=== PATIENT | female | born 1990 | race Caucasian/White ===

== ENCOUNTER 2024-01-19 11:30 | Emergency (ER) | payer OTHER ==
[~2024-01-19] VITALS: Ht 160 cm; Wt 50.8 kg
[~2024-01-19 11:30] MED LIST: NAPR220C62 PO; TIZANIDINE PO; [UNRECOGNIZED DRUG - OTHER] PO
[2024-01-19 11:36] VITALS: BP 128/87; PULSE 100; RESP 16; TEMP 98.3; O2SAT 98
[2024-01-19] MEDS ORDERED: IBUP-2077 PO (11:48)
--- NOTE | 2024-01-19 11:49 | ERN ---
ED Note History of Present Illness Stated Complaint: LEFT ARM COLD AFTER IV Chief Complaint: Skin Problem Time Seen by MD: 11:32 Dictation: PATIENT IS A 33-YEAR-OLD FEMALE HERE WITH COMPLAINTS OF PAIN TO LEFT LATERAL WRIST IV SITE FROM WHERE SHE WAS ADMITTED TO THE HOSPITAL AT [facility] SEVERAL DAYS AGO FOR ABDOMINAL PAIN. SHE STATES HER HAND FEELS COLD HOWEVER CAP REFILL IS BRISK, WARM TO TOUCH AND PALMAR REFILL IS BRISK. TENDERNESS NOTED TO VENOUS SITE WHERE SHE HAD HAD VENOUS PUNCTURE. NO FEVER NO CHILLS Allergies: Coded Allergies: codeine (Unverified Allergy, Unknown, HIVES, 01/14/24) loracarbef (Unverified Allergy, Unknown, HIVES, 01/14/24) Home Meds Reported Medications [Estrarylla] No Conflict Check, 1 TAB PO DAILY 01/14/24 Naproxen Sodium (Naproxen Sodium) 220 Mg Capsule, 2 CAP PO BID PRN for PRN for 7 Days, #28 CAP 0 Refills 01/14/24 [Tyzadidine] No Conflict Check, 4 MG PO 1-2 TIMES A DAY PRN for PRN 01/14/24 Past Medical History Past Medical History: No Pertinent History Surgical History: None Surgical History Other: JAW SX History: Not Applicable RN Note Reviewed/Agreed w/PFSH: Yes Review of System Dictation CONSTITUTIONAL: NEGATIVE EXCEPT FOR HPI HEAD/FACE: NEGATIVE EXCEPT FOR HPI EENT: NEGATIVE EXCEPT FOR HPI RESPIRATORY: NEGATIVE EXCEPT FOR HPI GASTROINTESTINAL/ABDOMINAL: NEGATIVE EXCEPT FOR HPI GENITOURINARY: NEGATIVE EXCEPT FOR HPI MUSCULOSKELETAL: NEGATIVE EXCEPT FOR HPI TENDERNESS TO VENOUS PUNCTURE SITE LEFT LATERAL WRIST. INTEGUMENTARY: NEGATIVE EXCEPT FOR HPI NEUROLOGICAL/PSYCH: NEGATIVE EXCEPT FOR HPI HEMATOLOGIC/LYMPHATIC: NEGATIVE EXCEPT FOR HPI ALL SYSTEMS NEGATIVE, EXCEPT NOTED ABOVE. 13 POINT REVIEW OF SYSTEMS ASSESSED AND ALL NEGATIVE EXCEPT FOR ABOVE. Initial Vital Sign VS Vital Signs Date Time Temp Pulse Resp B/P (MAP) Pulse Ox O2 Delivery O2 Flow Rate FiO2 01/19/24 11:36 98.2 100 16 128/87 98 Room Air 0 01/19/24 11:36 21 Physical Exam Dictation VITAL SIGNS REVIEWED GENERAL APPEARANCE: ALERT, ORIENTED X 3, MILD ACUTE DISTRESS, WELL DEVELOPED, NOURISHED. HEAD AND FACE: NON-TRAUMATIC. EYES: PERRL, PINK CONJUNCTIVAS, EYELID NO TRAUMA, ANTERIOR CHAMBER WITH ARCUS SENILIS. EARS: PINNAS INTACT AND NO SIGNS OF TRAUMA OR ERYTHEMA EAR CANALS CLEAR AND NO DISCHARGE TM NO ERYTHEMA NOSE: NO DISCHARGE, NO BLEEDING. OROPHARYNX: MOUTH NORMAL, TONGUE PINK, PHARYNX CLEAR,NO ERYTHEMA, TONSILS NO EXUDATES, NO ABSCESSES NOTED, MUCOUS MEMBRANE MOIST NECK: SUPPLE, NON-TENDER, NO THYROMEGALY, NO MASSES, NO JVD, NO BRUITS BREAST:DEFERRED CHEST:NO TENDERNESS, NO CREPITUS, NO PARADOXICAL MOVEMENT, NO RETRACTIONS LUNGS:CLEAR, WELL-VENTILATED, SYMMETRIC, NO RALES, NO WHEEZING, NO RHONCHI, NO STRIDOR, GOOD BREATH SOUNDS BILATERALLY HEART: REGULAR RATE, REGULAR RHYTHM, NO MURMUR, NO GALLOPS VASCULAR: NO PERIPHERAL EDEMA, ABDOMEN: SOFT, POSITIVE BOWEL SOUNDS, NONDISTENDED, NO GUARDING, NONTENDER, NO REBOUND, NO MASSES NO HEPATOMEGALY, NO SPLENOMEGALY, NO SKINNER'S SIGN, NO HERNIAS. RECTAL: DEFERRED GENITAL: DEFERRED NEUROLOGICAL: NORMAL SPEECH, MOTOR FUNCTION INTACT, SENSORY FUNCTION INTACT MUSCULOSKELETAL: NECK NONTENDER, FULL RANGE OF MOTION, BACK NONTENDER, FULL RANGE OF MOTION, EXTREMITIES: NONTENDER, FULL RANGE OF MOTION SKIN: COLOR PINK, DRY, TENDERNESS TO LEFT LATERAL WRIST VENOUS PUNCTURE SITE. NO TRACKING. FULL RANGE OF MOTION TO LEFT HAND WITH BRISK CAPILLARY REFILL AND PALMAR REFILL BRISK LYMPHATIC: DEFERRED Results (Laboratory/Radiology) Labs Reviewed?: Yes ED Course ED Course Orders Procedure Category Date Status Time Ketorolac 60mg/2ml PHA 01/19/24 In Process (Toradol 60mg/2ml) 12:00 Vital Signs Date Time Temp Pulse Resp B/P (MAP) Pulse Ox O2 Delivery O2 Flow Rate FiO2 01/19/24 11:36 99.5 80 16 128/87 98 Room Air* 0 21 01/19/24 11:36 98.2 100 16 128/87 98 Room Air 0 1145 PATIENT WILL BE TREATED EMPIRICALLY FOR THROMBOPHLEBITIS WITH TORADOL AND GIVEN NONSTEROIDAL DRUGS. FOR DISCHARGE NO LABS OR IMAGING INDICATED Medical Decision Making MDM MEDICAL DECISION-MAKING BASED ON TREATMENT FOR THROMBOPHLEBITIS NO LABS OR IMAGING INDICATED PATIENT GIVEN TORADOL IN EMERGENCY ROOM , DISCHARGED HOME WITH IBUPROFEN TO BE TAKEN EVERY 8 HOURS FOR THE NEXT THREE DAYS WITH FOOD. DX & DISP Disposition: Discharge Departure Impression: Primary Impression: Thrombophlebitis after perfusion Condition: Stable Scripts Ibuprofen (Ibuprofen 800 mg Tab) 800 Mg Tab 800 MG PO Q8H PRN for fever or pain, #30 TAB 0 Refills Prov: JUAN A HUNTER NP 01/19/24 Additional Instructions: FOLLOW-UP WITH PRIMARY CARE PROVIDER IN 1 TO 2 DAYS. TAKE MEDICATIONS DIRECTED HERE IN THE EMERGENCY ROOM. OKAY TO CONTINUE HOME MEDICATIONS UNLESS OTHERWISE DISCUSSED DURING YOUR VISIT IN THE EMERGENCY ROOM TODAY. RETURN TO YOUR NEAREST EMERGENCY ROOM IF SYMPTOMS WORSEN OR IF THERE IS NO IMPROVEMENT. CALL 911 IF YOU NEED IMMEDIATE ASSISTANCE. TAKE TYLENOL OR MOTRIN [id number] NEEDED AND IF NO CONTRAINDICATIONS ARE PRESENT. INCREASE ORAL HYDRATION. A WOUND CULTURE OR URINE CULTURE WAS ORDERED HERE IN THE EMERGENCY ROOM DEPARTMENT PLEASE FOLLOW-UP WITH PRIMARY CARE PROVIDER AND ADVISE THEM TO GET REPEAT PORTS FROM OUR FACILITY. IF YOU HAD ANY [place] WRAP/SPLINTS THAT WERE APPLIED HERE, PLEASE DO NOT REMOVE THEM UNTIL YOU SEE YOUR PRIMARY CARE OR SPECIALTY. WARM COMPRESSES TO PAIN THREE TO 4 TIMES A DAY., TAKE IBUPROFEN EVERY8 HOURS WITH FOOD FOR THE NEXT THREE DAYS. FOLLOW UP WITH YOUR PRIMARY CARE DOCTOR Referrals: SELF,REFERRAL (PCP) Time of Disposition: 11:48 I have reviewed the case, and I agree with, Diagnosis and Plan JUAN A HUNTER NP Jan 19, 2024 11:49
[2024-01-19] MEDS: ketOROlac 60 MG VIAL (30MG/ML) IM ONE (12:09)
== END 2024-01-19 12:18 | disposition home or self-care (01) ==
LOC: EDH 11:30
DX: I80.9 Phlebitis and thrombophlebitis of unspecified site (principal); Z88.5 Allergy status to narcotic agent
CPT/HCPCS: 99283; 96372; J1885

== ENCOUNTER 2024-01-20 22:31 | Emergency (ER) | payer OTHER ==
[~2024-01-20] VITALS: Ht 160 cm; Wt 52.2 kg
[~2024-01-20 22:31] MED LIST changes: +IBUP-2077 PO
--- NOTE | 2024-01-20 23:53 | ERN ---
General Chief Complaint: Allergic Reaction Stated Complaint: ALLERGIC REACTION Time Seen by MD: 22:32 History of Present Illness Initial Comments Mrs Adler is a 33-year-old female with no significant past medical history who presents today with a chief complaint of an allergic reaction. Patient reports that she ate at 5:30 a.m. and started developing some itchy feet at around 10:00 a.m.. Patient states that she started feeling some swelling in her face and inner eyelid. Patient states she took 50 mg of Benadryl and came in the emergency department. She denies any allergies to foods. She denies any bug bites. She denies any other potential exposures. Patient reports that she has no longer symptomatic and feels back to normal. She wants to be checked out. Allergies: Coded Allergies: codeine (Unverified Allergy, Unknown, HIVES, 01/14/24) loracarbef (Unverified Allergy, Unknown, HIVES, 01/14/24) Home Meds Active Scripts Ibuprofen (Ibuprofen 800 mg Tab) 800 Mg Tab, 800 MG PO Q8H PRN for fever or pain, #30 TAB 0 Refills Prov:JUAN A HUNTER NP 01/19/24 Reported Medications [Estrarylla] No Conflict Check, 1 TAB PO DAILY 01/14/24 Naproxen Sodium (Naproxen Sodium) 220 Mg Capsule, 2 CAP PO BID PRN for PRN for 7 Days, #28 CAP 0 Refills 01/14/24 [Tyzadidine] No Conflict Check, 4 MG PO 1-2 TIMES A DAY PRN for PRN 01/14/24 Past Medical History Past Medical History: No Pertinent History Past Surgical History: None Surgical History Other: JAW SX Female( History) History: Not Applicable ROS Dictation Constitutional: Negative for fever,chills, and weight loss Eyes: Negative for injury, pain,redness, and discharge ENT: Positive for facial swelling Cardiovascular: Negative for chest pain, palpitations, and edema Respiratory: Negative for shortness of breath, cough, and wheezing, Abdomen/GI: Negative for abdominal pain, nausea, vomiting, diarrhea, and constipation Back: Negative for injury and pain : Negative for injury, bleeding and discharge MS/Extremity: Negative for injury and deformity Skin: Positive for pruritus in the lower extremities Neuro: Negative for headache, weakness, numbness, tingling, and seizure Psych: Negative for suicide ideation, homicidal ideation, and hallucinations Physical Exam Physical Exam Dictation General: awake, alert, NAD Head/Face: Edentulous female Eyes: PERRL, EOMI, vision at baseline ENT: oral cavity clear Neck: Trachea midline, supple Cardiovascular: RRR, normal S1/S2, No MRGs, no JVD Respiratory: CTAB, no respiratory distress, No rales or wheezes Abdomen: Soft, non-tender, non-distended, normal bowel sounds, no guarding or rebound. Skin: Warm, dry, normal turgor, no rash MS/Extremity: Pulses equal, no cyanosis, neurovascular intact, FROM Neuro: COAx4, GCS 15, strength 5/5, CN 2-12 intact, normal cerebellar exam, normal gait, Psych: Normal behavior, mood, and affect normal MDM Patient has no signs of active swelling/angioedema. Patient's airway is completely clear without any pathology. Patient was no signs of hives. Advised patient to have p.r.n. Benadryl and tried to evaluate/retraced potential exposures. Advised patient if she worsens to come back to the emergency department. MDM: Differential diagnosis: Pruritus Rationale: Tests considered and ordered secondary to shared decision making include: Previous outside records reviewed: Old ER visits. Risk of complication and/or morbidity or mortality of patient management: None Medications-Per medication reconciliation Need for hospitalization: Patient does not meet criteria for hospitalization. Need for emergency major/minor surgery: No There are no social concerns with this patient. Prescription drug management Prescriptions will include symptomatic care Patient's prior external medical records from other ER visits were reviewed by me as indicated. Prior testing and results from previous visits were reviewed. Prior tests were taken into account with medical decision making and resource utilization, independent historian/historians were used to obtain complete medical history. I independently interpreted the test that were performed, results were reviewed by me and considered findings on radiology if ordered. Medical management and examination interpretation discussions were had by me with other qualified healthcare professionals as indicated for the patient's care. ED Course Vital Signs Date Time Temp Pulse Resp B/P (MAP) Pulse Ox O2 Delivery O2 Flow Rate FiO2 01/20/24 22:32 98.2 100 20 128/87 99 Room Air 0 DX & DISP Disposition: Discharge Departure Impression: Primary Impression: Pruritus Condition: Stable Referrals: SELF,REFERRAL (PCP) SAÚL BLACKBURN MD Jan 20, 2024 23:53
[2024-01-20 23:56] VITALS: BP 122/80; PULSE 88; RESP 16; TEMP 98; O2SAT 99
== END 2024-01-21 00:02 | disposition home or self-care (01) ==
LOC: EDH 22:31
DX: L29.9 Pruritus, unspecified (principal); Z79.899 Other long term (current) drug therapy; Z88.5 Allergy status to narcotic agent
CPT/HCPCS: 99281